=== PATIENT | male | born 1950 | race Caucasian/White ===

== ENCOUNTER 2020-01-20 13:13 | Day surgery (SDC) | payer OTHER, SELFPAY ==
[2020-01-17 11:40] VITALS: BMI 28.8
[2020-01-20 13:35] VITALS: BP 169/96; PULSE 80; RESP 15; TEMP 36.9; O2SAT 99; BMI 28.8
--- NOTE | 2020-01-20 13:49 | PM.PREOP ---
Pre-operative Note COVID-19 COVID-19 status: Negative Result date/Date tested (Pos, Neg/Pending): 01/17/20 Interval Note History & Physical reviewed/Exam performed by Physician: Yes Changes to H&P: No
--- NOTE | 2020-01-20 13:50 | PM.OP.1 ---
Operative Date/Time/Diagnoses Date of procedure: 01/20/20 Time of procedure: 15:05 Pre-op diagnosis: Medial meniscal tear left knee Post-op diagnosis: same Procedure & Clinicians Procedure: Left knee arthroscopy with partial medial meniscectomy Same procedure as scheduled: Yes Indications: The patient presents today for left knee arthroscopy for complex tear of the medial meniscus with mechanical symptoms. The nature of the procedure including the risks and benefits, alternatives, postoperative course and expected outcome were discussed and all questions answered. Consent was obtained. Operative site confirmed and marked. Surgeon: Wade Varghese Click Yes if Unassisted: Yes Anesthesia Type: General and Local Operative Notes Findings: Examination under anesthesia was unremarkable. Arthroscopic evaluation revealed a complex tear of the posterior horn of the medial meniscus with a flap component. This was debrided back to a stable rim. There was a thinned but still intact and functional rim of meniscus left after resection. 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 There was grade 2 chondromalacia of the trochlear groove. Minimal chondromalacia of the patella. The lateral compartment was pristine. The remainder of the arthroscopy was unremarkable. Closure Type: primary Specimen(s): none sent Estimated Blood Loss (mL): 1 Tourniquet time (min): 11 Procedure in detail: The patient was taken to the operative suite and given prophylactic antibiotics. Examination under anesthesia was performed. The leg was then prepped and draped in usual sterile fashion. The leg was exsanguinated with an Esmarch dressing and the tourniquet raised to 300 torr. The portal sites were anesthetized with 1% lidocaine with epinephrine and then established with an 11 blade. Medial and lateral parapatellar working portals were utilized. The scope was placed into the medial portal and into the lateral compartment of the knee. The knee was placed in the figure 4 position. The knee was then allowed to hang down at 90? and the notch evaluated. The knee was then extended and the scope switched to the lateral portal and placed up in the anterior compartment. The patellofemoral joint, medial gutter, lateral gutter and suprapatellar pouch were inspected. A valgus force was then placed across the knee over lateral stress post and the medial compartment was evaluated. See specific findings and procedures above. The arthroscopy was completed and the knee drained. The knee was filled with 30 mL of 0.5% ropivacaine and 4 of morphine. The portal sites were closed with Steri-Strips. A sterile gauze and Kev wrap dressing was applied. The patient tolerated procedure well and was returned to recovery room in good condition. Complications: none Post-operative Condition: stable Disposition: same day surgery Plan for aftercare: May progress weight-bearing and activity as tolerated. Parra knee range of motion exercises. Ice the knee for comfort. Follow up in 2 weeks.
[2020-01-20] MEDS: LACTATED RINGERS 1,000 ML 42 ML IV (13:54)
[2020-01-20] MEDS: CEFAZOLIN 1 GM/50 ML FROZ.PIGGY IV (14:15)
--- NOTE | 2020-01-20 14:43 | SUR.OPER ---
Supine on padded OR bed, head on pillow, arms secured on padded arm boards at <90 degrees abduction, legs uncrossed, safety belt at thigh, tape over blanket over lower legs.
[2020-01-20] MEDS: ROPIVACAINE 0.5% PF 5 MG/ML 20ML VIAL 10 ML INJ (14:48)
[2020-01-20] MEDS: LIDOCAINE 1% W/EPI 20 ML INJ (14:49)
[2020-01-20 15:07] VITALS: BP 114/74; PULSE 75; RESP 12; O2SAT 92
[2020-01-20 15:12] VITALS: BP 130/85; PULSE 72; RESP 11; TEMP 36.1; O2SAT 97
--- NOTE | 2020-01-20 15:14 | SUR.PHASEI ---
1310 Aroused spontaneously, oral airway dc'd. HOB elevated, ice chips given. Denies pain or nausea.
[2020-01-20 15:17] VITALS: BP 130/79; PULSE 71; RESP 13; O2SAT 96
[2020-01-20 15:22] VITALS: BP 145/91; PULSE 79; RESP 8; O2SAT 97
--- NOTE | 2020-01-20 15:28 | SUR.PHASEII ---
1525 Comfortable without pain, tolerating PO well. Very pleasant.
--- NOTE | 2020-01-20 15:54 | SUR.PHASEII ---
1553 Pt stable, pleasant, oriented, tolerated PO well; denies pain. SO and pt asked appropriate questions.
== END 2020-01-20 15:53 | disposition home or self-care (01) ==
PROVIDERS: PCP Family Medicine; Referring Provider Orthopaedic Surgery; Visit Provider Orthopaedic Surgery
PROC: (CPT 29870; principal; 2020-01-20 14:45)
DX: S83.242A Other tear of medial meniscus, current injury, left knee, initial encounter (principal); M94.262 Chondromalacia, left knee; X50.1XXA Overexertion from prolonged static or awkward postures, initial encounter; Y93.73 Activity, racquet and hand sports
CPT/HCPCS: 29881; J1100; J2250; J2405; J2704; J3010

== ENCOUNTER → 2021-05-04 15:08 | Outpatient (CLI) | payer OTHER, SELFPAY ==
--- NOTE | 2021-05-04 | DI.RAD.S_ITS ---
PROCEDURE: XR CALCANEOUS RT MIN 2V INDICATIONS: RIGHT HEEL PAIN TECHNIQUE: Two views of the calcaneus were acquired. COMPARISON: None. FINDINGS: Bones: No fractures or dislocations. No suspicious bony lesions. Prominent calcaneal spur is present. Soft tissues: No suspicious calcifications. Achilles tendon appears normal. IMPRESSION: Prominent calcaneal spur. No visualized acute fracture or dislocation. However, if clinical concern and/or pain persist, short interval imaging followup in 7-10 days is recommended, as occult injury cannot be definitively excluded. Dictated by: Christal Strange M.D. on 05/04/2021 at 16:37 Approved by: Christal Strange M.D. on 05/04/2021 at 16:38
== END ==
PROVIDERS: PCP Family Medicine; Referring Provider Family Medicine; Visit Provider Family Medicine
DX: M79.671 Pain in right foot (principal); M77.31 Calcaneal spur, right foot
CPT/HCPCS: 73650

== ENCOUNTER → 2021-05-17 14:40 | Outpatient (CLI) | payer OTHER, SELFPAY ==
--- NOTE | 2021-05-17 14:50 | DI.US.S_ITS ---
PROCEDURE: US ABD AORTA ANEURYSM SCREEN INDICATIONS: Encounter for screening for cardiovascular disorde TECHNIQUE: Real time scanning was performed of the aorta and iliac arteries, with image documentation. COMPARISON: None. FINDINGS: Aorta: Proximal aortic diameter measures 2.6 cm. Mid-aorta measures 1.7 cm. Distal aortic diameter is 1.9 cm. Iliac arteries: Right common iliac artery measures 1.1 cm. Left common iliac artery measures 1.1 cm. IMPRESSION: Mild ectasia of the proximal aorta. 5 year follow-up ultrasound recommended. Dictated by: Fredy Guillaume [facility] Interpreted: Joaquín Reid MD on 05/17/2021 at 15:19 Transcribed by: TIAGO on 05/17/2021 at 15:19 Approved by: Joaquín Reid M.D. on 05/17/2021 at 15:40
== END ==
PROVIDERS: PCP Family Medicine; Referring Provider Family Medicine; Visit Provider Family Medicine
DX: Z13.6 Encounter for screening for cardiovascular disorders (principal); I77.811 Abdominal aortic ectasia
CPT/HCPCS: 76706

== ENCOUNTER → 2024-06-13 11:47 | Outpatient (CLI) | payer OTHER, SELFPAY ==
--- NOTE | 2024-06-13 | DI.CT.S_ITS ---
PROCEDURE: CT ABDOMEN PELVIS W CON INDICATIONS: right upper quadrant abdominal pain TECHNIQUE: After the administration of intravenous contrast, axial sections acquired from the lung bases to the pubic symphysis. Coronal and sagittal reformats were performed. For radiation dose reduction, the following was used: automated exposure control, adjustment of mA and/or kV according to patient size. COMPARISON: None. FINDINGS: Image quality: Diagnostic. Lower Chest: 4 mm nodule is seen in the peripheral left lower lobe (3/18), most likely benign. Optional [address] follow-up could be considered to demonstrate stability. Moderate to severe coronary calcifications. ABDOMEN: Liver: No solid mass. 1.3 cm right hepatic cyst is considered benign. Additional smaller subcentimeter hypoattenuating lesions are too small characterize. Gallbladder: Status post cholecystectomy. Biliary ducts: No biliary dilation. Pancreas: No ductal dilation. Spleen: Size is within normal limits. Adrenal Glands: No adrenal nodules. Kidneys and Ureters: No hydronephrosis. No solid mass. No complex renal cystic lesion which requires follow up. Multiple benign-appearing renal cysts bilaterally. Stomach and Bowel: A diverticulum is seen at the 2nd portion of the duodenum without surrounding inflammatory changes. Normal appendix. Small bowel loops and stomach are unremarkable. Peritoneum: No abnormal intraperitoneal fluid. No free air. Ventral Wall: Small fat containing periumbilical hernia. Abdominal Nodes: No retroperitoneal or mesenteric adenopathy by size criteria. Vessels: Aorta and inferior vena cava are normal in size. PELVIS: Pelvic Organs: Unremarkable. Bladder: No bladder wall thickening, accounting for underdistention. Pelvic Nodes: No enlarged lymph nodes. Miscellaneous: Small bilateral fat containing inguinal hernias. Bones: No aggressive osseous abnormality. Intramuscular lipoma is incidentally noted in the right proximal thigh posteriorly. Degenerative changes in the hips, sacroiliac joints, and spine. IMPRESSION: 1. No acute abnormality identified in the abdomen or pelvis. 2. Colonic diverticulosis without signs of acute diverticulitis. 3. Fat containing inguinal and umbilical hernias. Approved by: Vincenzo Snow M.D. on 06/13/2024 at 14:28
== END ==
PROVIDERS: PCP Family Medicine; Referring Provider Family Medicine; Visit Provider Family Medicine
DX: K57.30 Diverticulosis of large intestine without perforation or abscess without bleeding (principal); K40.90 Unilateral inguinal hernia, without obstruction or gangrene, not specified as recurrent; K42.9 Umbilical hernia without obstruction or gangrene; R91.1 Solitary pulmonary nodule; K76.89 Other specified diseases of liver; N28.1 Cyst of kidney, acquired; R10.11 Right upper quadrant pain; Z90.49 Acquired absence of other specified parts of digestive tract
CPT/HCPCS: 74177; Q9967

== ENCOUNTER → 2025-05-06 10:28 | Outpatient (CLI) | payer OTHER, SELFPAY ==
--- NOTE | 2025-05-06 10:29 | DI.RAD.S_ITS ---
PROCEDURE: XR HIP W PEL IF DONE RT 2V INDICATIONS: right hip and low back pain TECHNIQUE: AP pelvis with lateral view(s) of the right hip(s). COMPARISON: [facility], CT, CT ABDOMEN PELVIS W CON, 06/13/2024, 13:09. FINDINGS: Bones: No fractures or dislocations. Pelvic ring appears intact. No suspicious bony lesions. Moderate symmetric axial hip joint space narrowing with periarticular osteophyte formation. Degenerative disc and facet disease involves the inferior lumbar spine. Soft tissues: The visualized bowel gas pattern is normal. No suspicious soft tissue calcifications. IMPRESSION: Moderate symmetric hip joint degeneration. Dictated by: Fredy Guillaume RRA Interpreted: Joaquín Reid MD on 05/06/2025 at 12:02 Transcribed by: TIAGO on 05/06/2025 at 12:04 Approved by: Joaquín Reid M.D. on 05/06/2025 at 13:17
--- NOTE | 2025-05-06 10:29 | DI.RAD.S_ITS ---
PROCEDURE: XR LUMBAR SPINE 2-3V INDICATIONS: right hip and low back pain TECHNIQUE: 3 views of the lumbar spine were acquired. COMPARISON: [facility], CT, CT ABDOMEN PELVIS W CON, 06/13/2024, 13:09. FINDINGS: Bones: 5 [id number] vertebrae are present. There is normal bony alignment. No vertebral body compression fractures. No suspicious bony lesions. Multilevel disc height loss with endplate sclerosis and spurring, most notably and moderate to severe at the L5-S1 level. Moderate L4-L5 and L5-S1 facet joint arthropathy. Soft tissues: Overlying bowel gas pattern is normal. No suspicious soft tissue calcifications. Vascular calcifications indicate atherosclerosis. IMPRESSION: Multilevel lumbar spine spondylosis, most notably at the L5-S1 level. Dictated by: Fredy Guillaume [facility] Interpreted: Joaquín Reid MD on 05/06/2025 at 12:01 Transcribed by: TIAGO on 05/06/2025 at 12:02 Approved by: Joaquín Reid M.D. on 05/06/2025 at 13:16
== END ==
PROVIDERS: PCP Family Medicine; Referring Provider Family Medicine; Visit Provider Family Medicine
DX: M47.816 Spondylosis without myelopathy or radiculopathy, lumbar region (principal); M47.817 Spondylosis without myelopathy or radiculopathy, lumbosacral region; M54.50 Low back pain, unspecified; M25.551 Pain in right hip; G89.29 Other chronic pain
CPT/HCPCS: 72100; 73502

== ENCOUNTER → 2025-05-08 13:00 | Outpatient (CLI) | payer OTHER, SELFPAY ==
--- NOTE | 2025-05-27 09:16 | DIET.OUTPTC ---
Dietary Outpatient Consult Consult Date:05/08/25 Assessment:?75 y M referred to dietitian for obesity class 1 and Unspecified chronic gastritis without bleeding. Pt wanting accountability with weight management. Reports bloating symptoms post meals. Mostly aware with what he needs to do. Support person is . Lives in [place] for half the year. GI symptoms: hx of ulcer 20-30 minutes post meal has bloating, denies abd pain/sharp pain/excessive gas, rather feels like uncomfortable pressure. Reports regular BMs daily. Diet Recall: 8am- cappuccino +biscotti [id number] meal chk/fish (6oz) w about 1.5 c pasta/rice and 2 cups veggies/salad sometimes has a lunch of anais and ham and cheese and then late dinner closer to 7-8p eats meal in 5-10 minutes doesn't use butter, only EVOO sometimes has hard meats but reports these have no added sodium in them and has checked the label of these Fluids:water 05/06/2510:07 Height 5 ft 8 in Weight 202 lb BMI 30.7 Activity:2x/wk going to gym. In the summer swims at [employer]. Pertinent Labs:11/15/24: TC 164, HDL 33, LDl 108, TC 116. These lab values are reduced compared to June 2024 labs. Nutrition Diagnosis:? Inadequate protein intake r/t food and nutrient related knowledge deficit on protein needs aeb diet recall showing some days only 6 oz of animal/fish protein source Food and nutrient knowledge deficit r/t looking for guidance on protein sources and meal timing aeb pt assessment Interventions:? Discussed and provided appropriate resources on the following: -Discussed smaller meals and slower eating with more complete chewing to help bloating/pressure -Adding protein sources to breakfast, reviewed protein sources -Protein daily goals -Label reading educ -Lab values and correlation with nutrition Goals: -Add 2 eggs in morning -Small snack around noon to prevent going over 4 hours without eating during day time -Eating time to 20-30 minutes to help w digestion Plan to further discuss label reading for hard meats and cheese next session EER:? 75-85 g protein (1g/kg adj IBW) Monitoring/Evaluations:? F/u in 4-6 weeks, pt can record intakes via lisbeth/journal/pictures for help w accountability Electronically Signed by: Aiyana Archibald Clinical Dietitian [address] [id number]
== END ==
LOC: DIET 13:01
PROVIDERS: PCP Family Medicine; Referring Provider Family Medicine
DX: E66.811 Obesity, class 1 (principal); K29.50 Unspecified chronic gastritis without bleeding; Z71.3 Dietary counseling and surveillance
CPT/HCPCS: 97802